=== PATIENT | male | born 1930 | race Caucasian/White ===

== ENCOUNTER 2017-04-10 12:13 | Observation (INO) | payer MEDICARE, OTHER ==
[~2017-04-10] VITALS: Wt 100.0 kg
[2017-04-10 14:02] LABS: INR 1.16; PROTIME 14.8 Sec (12.2-14.2); PT RATIO 1.2
[2017-04-10 14:03] LABS: ABNORMAL IP MESSAGE 1; HEMATOCRIT 12.1 % (42.0-52.0); MEAN CORPUSCULAR HEMOGLOBIN 31.3 pg (29.0-33.0); MEAN CORPUSCULAR HGB CONC 33.9 g/dl (32.0-37.0); MEAN CORPUSCULAR VOLUME 92.4 fl (82.0-101.0); MEAN PLATELET VOLUME 9.8 fl (7.4-10.4); PARTIAL THROMBOPLASTIN TIME 30.2 Sec (25.0-35.0); POSITIVE DIFF @See below; RED BLOOD COUNT 1.31 10^6/ul (4.70-6.10); RED CELL DISTRIBUTION WIDTH 14.5 % (11.5-14.5); WHITE BLOOD COUNT 0.5 10^3/ul (4.8-10.8)
[2017-04-10 14:05] LABS: ALBUMIN 3.5 g/dl (3.3-4.9); ALBUMIN/GLOBULIN RATIO 1.12; BILIRUBIN,INDIRECT 0.3 mg/dl (0-1.1); BILIRUBIN,TOTAL 0.3 mg/dl (0.2-1.3); CALCIUM 8.5 mg/dl (8.4-10.2); CREATININE 1.23 mg/dl (0.61-1.24); POTASSIUM 4.7 mmol/L (3.5-5.1); TOTAL PROTEIN 6.6 g/dl (6.1-8.1)
[2017-04-10 14:08] LABS: HEMOGLOBIN 4.1 g/dl (14.0-18.0)
[2017-04-10 14:09] LABS: PLATELET COUNT 9 10^3/UL (140-415)
[2017-04-10] MEDS ORDERED: CANA100T PO (14:18)
[2017-04-10] MEDS ORDERED: SITA1TAB5 PO (14:19)
[2017-04-10] MEDS ORDERED: CRES10 PO (14:19)
[2017-04-10] MEDS ORDERED: LINA290C PO (14:19)
[2017-04-10] MEDS ORDERED: ISOS30TA5 PO (14:20)
[2017-04-10] MEDS ORDERED: ERGO2000 PO (14:21)
--- NOTE | 2017-04-10 14:23 | RADRPT ---
PROCEDURE: XR Chest. CLINICAL INDICATION: Upper gastrointestinal bleeding. TECHNIQUE: Single frontal view. COMPARISON: None. FINDINGS: The lungs are clear. The heart is mildly enlarged. There is no pleural effusion. There is no pneumothorax. IMPRESSION: 1. Mild cardiomegaly. 2. Otherwise normal chest x-ray. RPTAT: QQ .Mayco Perez MD, MD Date Time Electronically viewed and signed by .Mayco Perez MD, MD on 04/10/2017 14:22 .R/
[2017-04-10 14:32] LABS: ANISOCYTOSIS 2+ (0-0); HYPOCHROMASIA 1+ (0-0); MICROCYTOSIS 2+ (0-0); MONOCYTES % (M) 2 % (0-11); PLATELET ESTIMATE SIG DECREASED; POIKILOCYTOSIS 1+ (0-0); POLYCHROMASIA 3+ (0-0); RBC MORPHOLOGY COMMENT @See below
--- NOTE | 2017-04-10 17:22 | ERA ---
ER Documentation Chief Complaint Date/Time DATE: 04/10/17 TIME: 17:19 Chief Complaint GEN WEAKNESS FOR THE PAST FEW DAYS. NO NEURO DEFICIT NO MOTOR DEFICIT HPI This 86-year-old male with a history of leukemia who is getting blood transfusions every 3-4 weeks on a regular basis. The patient is having some generalized weakness over the past 2 days and turning more pale consistent with his prior anemia flareups. He has no chest pain or breathing difficulty no fever. The patient had labs done yesterday and was called to come in with a hemoglobin of 4.5. No vomiting diarrhea no cough or fever. The patient is followed at [facility] and usually gets blood transfusions at [facility]. Patient's doctor is Dr. CLINE whom I spoke with ROS All systems reviewed and are negative except as per history of present illness. Medications Home Meds Reported Medications Ergocalciferol (Vitamin D2) (VITAMIN D2) 2,000 Unit Tablet, 2000 UNIT PO DAILY, TAB 04/10/17 Isosorbide Mononitrate* (Isosorbide Mononitrate*) 30 Mg Tab.er.24h, 30 MG PO DAILY, TAB 04/10/17 Linaclotide (LINZESS) 290 Mcg Capsule, 290 MCG PO DAILY, #30 CAP 04/10/17 Sitagliptin Phos/Metformin HCl (Janumet 50-1,000 mg Tablet) 1 Each Tablet, 1 EACH PO DAILY, TAB 04/10/17 Rosuvastatin Calcium* (Crestor*) 10 Mg Tablet, 10 MG PO QHS, #30 TAB 04/10/17 Canagliflozin (Invokana) 100 Mg Tablet, 100 MG PO DAILY, TAB 04/10/17 Allergies Allergies: Coded Allergies: No Known Allergy (Unverified , 04/10/17) PMhx/Soc History of Surgery: No Anesthesia Reaction: No Hx Neurological Disorder: No Hx Respiratory Disorders: No Hx Cardiac Disorders: Yes (high cholesterol, cardiac stents) Hx Psychiatric Problems: No Hx Miscellaneous Medical Probl: Yes (umb hernia, dm, pre-leukemia, anemia) Hx Alcohol Use: No Hx Substance Use: No Hx Tobacco Use: No Smoking Status: Never smoker FmHx Family History: No coronary disease Physical Exam Vitals Vital Signs Date Time Temp Pulse Resp B/P Pulse Ox O2 Delivery O2 Flow Rate FiO2 04/10/17 15:32 74 17 138/57 98 Room Air 04/10/17 14:54 72 16 121/57 96 Room Air 04/10/17 13:16 98.8 85 20 119/59 98 Physical Exam Const: Well-developed, well-nourished Head: Atraumatic, normocephalic Eyes: Normal Conjunctiva, PERRLA, EOMI, normal sclera, no nystagmus ENT: Normal External Ears, Nose and Mouth, moist mucus membranes. Neck: Full range of motion. No meningismus, no lymphadenopathy. Resp: Clear to auscultation bilaterally, no wheezing, rhonchi, rales Cardio: Regular rate and rhythm, no murmurs, S1 S2 present Abd: Soft, non tender x 4, non distended. Normal bowel sounds, no guarding or rebound, no pulsitile abdominal masses or bruits Skin: No petechiae or rashes, no ecchymosis , no maculopapular rash, pale Back: No midline or flank tenderness Ext: No cyanosis, or edema, FROM x 4, normal inspection, neurovascularly intact x 4 Neur: Awake and alert, STR 5/5 x 4, sensation intact x 4, no focal findings, cerebellum intact Psych: Normal Mood and Affect Result Diagram: 04/10/17 1335 04/10/17 1335 Results 24 hrs Laboratory Tests Test 04/10/17 13:35 White Blood Count 0.510^3/ul Red Blood Count 1.3110^6/ul Hemoglobin 4.1g/dl Hematocrit 12.1% Mean Corpuscular Volume 92.4fl Mean Corpuscular Hemoglobin 31.3pg Mean Corpuscular Hemoglobin Concent 33.9g/dl Red Cell Distribution Width 14.5% Platelet Count 910^3/UL Mean Platelet Volume 9.8fl Neutrophils % % Segmented Neutrophils % (Manual) 10% Lymphocytes % % Lymphocytes % (Manual) 89% Monocytes % % Monocytes % (Manual) 2% Eosinophils % % Basophils % % Nucleated Red Blood Cells % 0.0/100WBC Neutrophils # 10^3/ul Absolute Lymphocytes (Manual) 0.410^3/ul Lymphocytes # 10^3/ul Monocytes # 10^3/ul Absolute Monocytes (Manual) 0.010^3/ul Eosinophils # 10^3/ul Basophils # 10^3/ul Nucleated Red Blood Cells # 10^3/ul White Cell Morphology Comment @See below Platelet Estimate SIG DECREASED Polychromasia 3+ Hypochromasia 1+ Poikilocytosis 1+ Anisocytosis 2+ Microcytosis 2+ Red Cell Morphology Comment @See below Prothrombin Time 14.8Sec Prothrombin Time Ratio 1.2 INR International Normalized Ratio 1.16 Activated Partial Thromboplast Time 30.2Sec Sodium Level 136mmol/L Potassium Level 4.7mmol/L Chloride Level 100mmol/L Carbon Dioxide Level 27mmol/L Anion Gap 14 Blood Urea Nitrogen 42mg/dl Creatinine 1.23mg/dl Glucose Level 277mg/dl Calcium Level 8.5mg/dl Total Bilirubin 0.3mg/dl Direct Bilirubin 0.00mg/dl Indirect Bilirubin 0.3mg/dl Aspartate Amino Transf (AST/SGOT) 25IU/L Alanine Aminotransferase (ALT/SGPT) 37IU/L Alkaline Phosphatase 42IU/L Total Protein 6.6g/dl Albumin 3.5g/dl Globulin 3.10g/dl Albumin/Globulin Ratio 1.12 Procedures/MDM Patient is found to have very low hemoglobin very low platelets. We will transfuse 2 units of blood and 2 units of platelets. Patient will be admitted for continuous transfusion until in a stable range Critical Care Time: 80 minutes Treatments/Evaluations: Close monitoring and treatment of unstable vital signs, cardiorespiratory, and neurologic status, while maintaining tight balance of fluid, respiratory, and cardiac interventions. This time includes discussing the case with the patient and the patient's family. This time does not include all procedures stated elsewhere in this record. This time also includes reviewing old records, labs and radiological studies. This time includes examining and re-examining the patient. Additionally, this time also includes arranging care with admitting and consulting physicians. Departure Diagnosis: Primary Impression: Severe anemia Additional Impression: Thrombocytopenia Condition: TIFFANIE Le DO Apr 10, 2017 17:22
[2017-04-10] MEDS ORDERED: ACETAMINOPHEN 325 MG TAB PO PRN ×2 (17:30→19:30)
[2017-04-10] MEDS ORDERED: ONDANSETRON 4 MG INJ IV PRN ×2 (17:30→19:30)
[2017-04-10 18:34] VITALS: TEMP 98.2
--- NOTE | 2017-04-10 19:29 | HP ---
Date/Time of Note Date/Time of Note DATE: 04/10/17 TIME: 19:25 Assessment/Plan VTE Prophylaxis VTE Prophylaxis Intervention: SCD's Assessment/Plan Chief Complaint/Hosp Course 1. 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 Diabetes Continue home meds 3. Dyslipidemia Continue home meds 4. Hypertension Continue home meds Prophylaxis: SCDs Problems: HPI/ROS Admit Date/Time Admit Date/Time April 10, 2017 Hx of Present Illness Patient is an 86-year-old male with a history of leukemia, non-insulin- requiring diabetes and dyslipidemia, patient does follow with an oncologist, patient has required transfusions for many years now. Patient found to be anemic and was sent to the ED, and ER doctor did speak to his oncologist recommended transfuse him 3 units of packed red blood cells and then could potentially discharge. In the ER blood transfusion has been initiated. Patient has no acute complaints this time. ROS Constitutional: improved, no complaints Eyes: no complaints ENT: no complaints Respiratory: no complaints Cardiovascular: no complaints Gastrointestinal: no complaints Genitourinary: no complaints Musculoskeletal: no complaints Skin: no complaints Neurologic: no complaints Endocrine: no complaints Lymphatic: no complaints Psychological: nl mood/affect, no complaints Immunologic: no complaints PMH/Family/Social Past Medical History Leukemia, hypertension, diabetes, dyslipidemia Family History Significant Family History: no pertinent family hx Social History Alcohol Use: rarely Smoking Status: Never smoker Drug Use: none Exam/Review of Systems Vital Signs Vitals Vital Signs Date Time Temp Pulse Resp B/P Pulse Ox O2 Delivery O2 Flow Rate FiO2 04/10/17 18:34 98.2 75 13 122/52 99 Room Air Exam Constitutional: alert, oriented Head: normocephalic Respiratory: clear to auscultation Cardiovascular: regular rate and rhythm Gastrointestinal: soft, No distended Musculoskeletal: nl extremities to inspection Labs Result Diagram: 04/10/17 1335 04/10/17 1335 JOSÉ ARREGUIN Apr 10, 2017 19:29
[2017-04-10] MEDS ORDERED: morphine 2 MG INJ IV PRN (19:30)
[2017-04-10] MEDS ORDERED: NACL 0.9% 3 ML SYG IV SCH (19:30)
[2017-04-10] MEDS ORDERED: ZOLPIDEM 5 MG TAB PO PRN (19:30)
[2017-04-10] MEDS ORDERED: HYDROCODONE/APAP (5/325) TAB PO PRN (19:30)
[2017-04-10 19:56] VITALS: BP 130/60; RESP 20
[2017-04-10 20:00] VITALS: PULSE 73
[2017-04-10 23:59] VITALS: BP 127/60; RESP 20
[2017-04-11] VITALS (8 sets, daily range): BP systolic 113–127; BP diastolic 55–65; PULSE 60–71; RESP 17–20
[2017-04-11 01:07] LABS: HEMATOCRIT 15.2 % (42.0-52.0)
[2017-04-11 01:37] LABS: HEMOGLOBIN 5.2 g/dl (14.0-18.0)
[2017-04-11] MEDS ORDERED: SOD CHLORIDE 0.9% 250 ML IV* ONE (02:21)
[2017-04-11] MEDS ORDERED: [UNRECOGNIZED DRUG - REMARK] XX SCH (08:00)
[2017-04-11] MEDS ORDERED: LINZESS IS NON FORMULARY...PLEASE CONSIDER AN ORDER TO USE PATIENT'S OWN MED XX SCH (08:00)
[2017-04-11] MEDS ORDERED: NON-FORMULARY/PATIENT OWN MED (Canagliflozin (Invokana) 100 MG) PO SCH (09:00)
[2017-04-11] MEDS ORDERED: NON-FORMULARY/PATIENT OWN MED (Linaclotide (Linzess) 290 MCG) PO SCH (09:00)
[2017-04-11] MEDS ORDERED: ISOSORBIDE MONONITRATE(SR)30 MG TAB PO SCH (09:00)
[2017-04-11] MEDS ORDERED: CHOLECALCIFEROL 2,000 UNIT CAP PO SCH (09:00)
[2017-04-11] MEDS ORDERED: NON-FORMULARY/PATIENT OWN MED (Sitagliptin Phos/Metformin HCl (Janumet 50-1,000 mg Tablet) PO SCH (09:00)
[2017-04-11 09:13] LABS: ADD UMIC YES; UR ASCORBIC ACID NEGATIVE (NEGATIVE); UR BILIRUBIN (Dip) NEGATIVE (NEGATIVE); UR BLOOD (Dip) 3+ mg/dL (NEGATIVE); UR CLARITY CLEAR (CLEAR); UR COLOR YELLOW (YELLOW); UR GLUCOSE (Dip) 3+ mg/dL (NEGATIVE); UR KETONES (Dip) NEGATIVE (NEGATIVE); UR LEUKOCYTE ESTERASE (Dip) NEGATIVE Leu/ul (NEGATIVE); UR NITRITE (Dip) NEGATIVE (NEGATIVE); UR RBC > 182 /HPF (0-5); UR SPECIFIC GRAVITY (Dip) 1.014 (1.003-1.030); UR TOTAL PROTEIN (Dip) NEGATIVE (NEGATIVE); UR UROBILINOGEN (Dip) NEGATIVE (NEGATIVE)
--- NOTE | 2017-04-11 13:54 | PDOCDIS ---
Discharge Instructions CONDITION Patient Condition: Good HOME CARE INSTRUCTIONS: Diet Instructions: Regular ACTIVITY: Activity Restrictions: No Restrictions FOLLOW UP/APPOINTMENTS Follow-up Plan FOLLOW UP WITH YOUR PRIMARY CARE PHYSICIAN IN 1-2 WEEKS JOSÉ ARREGUIN Apr 11, 2017 13:54
--- NOTE | 2017-04-11 13:57 | DS ---
Date/Time of Note Date/Time of Note DATE: 04/11/17 TIME: 13:55 Discharge Summary Admission/Discharge Info Admit Date/Time Apr 10, 2017 at 17:19 Discharge Date/Time April 11, 2017 Discharge Diagnosis 1. 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 Diabetes Continue home meds 3. Dyslipidemia Continue home meds 4. Hypertension Continue home meds Patient Condition: Good Hospital Course Patient is an 86-year-old male with a history of leukemia, non-insulin- requiring diabetes and dyslipidemia, patient does follow with an oncologist, patient has required transfusions for many years now. Patient found to be anemic and was sent to the ED, patient received 4 units of packed red blood cells and 2 units of platelets. On day of discharge patient was asymptomatic vitals were stable with no tachycardia, labs are stable as is physical exam. Patient no acute complaints. Home Meds Reported Medications Ergocalciferol (Vitamin D2) (VITAMIN D2) 2,000 Unit Tablet, 2000 UNIT PO DAILY, TAB 04/10/17 Isosorbide Mononitrate* (Isosorbide Mononitrate*) 30 Mg Tab.er.24h, 30 MG PO DAILY, TAB 04/10/17 Linaclotide (LINZESS) 290 Mcg Capsule, 290 MCG PO DAILY, #30 CAP 04/10/17 Sitagliptin Phos/Metformin HCl (Janumet 50-1,000 mg Tablet) 1 Each Tablet, 1 EACH PO DAILY, TAB 04/10/17 Rosuvastatin Calcium* (Crestor*) 10 Mg Tablet, 10 MG PO QHS, #30 TAB 04/10/17 Canagliflozin (Invokana) 100 Mg Tablet, 100 MG PO DAILY, TAB 04/10/17 Follow-up Plan FOLLOW UP WITH YOUR PRIMARY CARE PHYSICIAN IN 1-2 WEEKS Primary Care Provider Pratima Smith MD Time spent on discharge: > 30 minutes JOSÉ ARREGUIN Apr 11, 2017 13:57
[2017-04-11 14:32] LABS: ABNORMAL IP MESSAGE 1; HEMATOCRIT 18.9 % (42.0-52.0); MEAN CORPUSCULAR HEMOGLOBIN 30.7 pg (29.0-33.0); MEAN CORPUSCULAR HGB CONC 34.9 g/dl (32.0-37.0); MEAN CORPUSCULAR VOLUME 87.9 fl (82.0-101.0); PLATELET COUNT 35 10^3/UL (140-415); POSITIVE DIFF @See below; RED BLOOD COUNT 2.15 10^6/ul (4.70-6.10); RED CELL DISTRIBUTION WIDTH 14.3 % (11.5-14.5); WHITE BLOOD COUNT 0.5 10^3/ul (4.8-10.8)
[2017-04-11 14:37] LABS: HEMOGLOBIN 6.6 g/dl (14.0-18.0)
[2017-04-11 14:53] LABS: CALCIUM 8.4 mg/dl (8.4-10.2); CREATININE 1.2 mg/dl (0.61-1.24); MAGNESIUM 1.7 mg/dl (1.7-2.5); PHOSPHORUS 4.6 mg/dl (2.5-4.9); POTASSIUM 4.7 mmol/L (3.5-5.1)
[2017-04-11 17:08] LABS: ANISOCYTOSIS 2+ (0-0); BURR CELLS 1+ (0-0); EOSINOPHILS % (M) 1 % (0-7); ERYTHROBLAST% (NRBC) (M) 2 % (0-0); MICROCYTOSIS 2+ (0-0); MONOCYTES % (M) 1 % (0-11); OVALOCYTES 1+ (0-0); POIKILOCYTOSIS 1+ (0-0); POLYCHROMASIA 3+ (0-0); SCHISTOCYTES 1+ (0-0); TARGET CELLS 1+ (0-0)
[2017-04-11] MEDS ORDERED: ATORVASTATIN 10 MG TAB PO SCH (21:00)
== END 2017-04-11 17:20 | disposition home or self-care (01) ==
LOC: E/R 12:13 → MS4 17:19
PROVIDERS: ADMIT Internal Medicine; ATTEND Internal Medicine
DX: D61.818 Other pancytopenia (principal); D64.9 Anemia, unspecified; D69.6 Thrombocytopenia, unspecified; E11.9 Type 2 diabetes mellitus without complications; E78.5 Hyperlipidemia, unspecified; I10 Essential (primary) hypertension; I51.7 Cardiomegaly; Z85.6 Personal history of leukemia
CPT/HCPCS: 36415; 36430; 71010; 80048; 80053; 81001; 83036; 83735; 84100; 85014; 85018; 85025; 85610; 85730; 86644; 86850; 86900; 86901; 86920; 86945; 93005; 99291; G0378; J7040; P9016; P9035